=== PATIENT | female | born 1980 | race Caucasian/White ===

== ENCOUNTER 2021-05-27 12:59 | Outpatient (CLI) | payer OTHER ==
--- NOTE | 2021-06-02 15:21 | Mammography Report ---
BILATERAL DIGITAL SCREENING MAMMOGRAM 3D/2D WITH EXAGGERATED CC: 05/27/2021 CLINICAL: Routine screening. Additional films were requested but not obtained. The tissue of both breasts is heterogeneously dens e. This may lower the sensitivity of mammography. No significant masses, calcifications, or other findings are seen in either breast. IMPRESSION: NEGATIVE There is no mammographic evidence of malignancy. A 1 year screening mammogram is recommended. This exam was interpreted at Station ID: [id number]. NOTE: For mammograms, a report in lay terms will be sent to the patient. Approximately 15% of breast malignancies will not be visualized mammographically. In the management of a palpable breast mass, a negative mammogram must not discourage biopsy of a clinically suspicious lesion. Electronically Signed By: Vivek oliver/rahat:06/02/2021 08:31:23 ACR BI-RADS Category 1: Negative 3341F PARENCHYMAL PATTERN: (D) - The breast(s) demonstrate(s) heterogeneously dense fibroglandular [place]. BI-RADS CATEGORY: (1) - 1 RECOMMENDATION: (ANNUAL) - Recommend routine annual screening mammography. [id number] 1 year screening LATERALITY: (B)
== END 2021-05-27 13:00 | disposition home or self-care (01) ==
LOC: DI.S 12:59
DX: Z12.31 Encounter for screening mammogram for malignant neoplasm of breast (principal)

== ENCOUNTER 2021-06-14 00:24 | Emergency (ER) | payer OTHER ==
[2021-06-14] MEDS ORDERED: SODIUM CHLORIDE 0.9% 500 ML IV STA (00:48)
--- NOTE | 2021-06-14 00:54 | ED Physician Documentation ---
History of Present Illness - Stated complaint Stated Complaint: RT KNEE PX - Chief complaint Chief Complaint: Ext Problem - History obtained from History obtained from: Patient - Additonal information Additional information: Patient is a 41-year-old female with a history significant for hypertension presenting for evaluation of pain behind right knee that started at 11 PM. Patient was sitting when she noticed the pain and it did not improve. She has not had a similar pain previously and denies any recent injury or trauma.Patient Was concerned for blood clot and presented to the emergency department. She denies previous history of pulmonary embolism or DVT, estrogen use, recent travel or immobilization. She denies chest pain or difficulty breathing. She was noted to be tachycardic at arrival in triage and reports feeling anxious as she does not come to the doctor often. Her blood pressure was also elevated and she is on lisinopril 30 mg daily and has been compliant.The pain feels sharp and is worse Extending her knee or ambulating. It is better at rest. Review of Systems Constitutional: denies: Fever Nose: denies: Congestion Cardiac: denies: Chest pain / pressure Respiratory: denies: Dyspnea, Cough GI: denies: Abdominal Pain, Vomiting Skin: denies: Rash Musculoskeletal: reports: Joint pain. denies: Back pain, Extremity swelling Neurologic: denies: Head injury PD PAST MEDICAL HISTORY - Present Medications Home Medications: Ambulatory Orders Medication Instructions Recorded Confirmed Lisinopril [Zestril] 30 mg PO DAILY 06/14/21 06/14/21 - Allergies Allergies/Adverse Reactions: Allergies Allergy/AdvReac Type Severity Reaction Status Date / Time Sulfa (Sulfonamide Allergy Hives Verified 06/14/21 00:36 Antibiotics) PD ED PE NORMAL - General General: Alert and oriented X 3, No acute distress, Well developed/nourished - HEENT HEENT: Atraumatic, Moist mucous membranes - Neck Neck: Supple, no meningeal sign - Cardiac Cardiac: RRR, No murmur, Strong equal pulses - Respiratory Respiratory: No respiratory distress, Clear bilaterally - Abdomen Abdomen: Normal bowel sounds, Soft, Non tender - Derm Derm: Normal color, Warm and dry, No rash - Extremities Extremities: No deformity, No edema, No calf tenderness / cord, Other (Mild tenderness to Posterior knee, no laxity on exam, no erythema, pain worse with extension but able to fully extend, Distal pulses intact, compartments of extremity are soft) - Neuro Neuro: Alert and oriented X 3, No motor deficit, No sensory deficit - Psych Psych: Normal mood, Normal affect Results - Vitals Vitals: Vital Signs - 24 hr 06/14/21 06/14/21 06/14/21 00:32 00:42 01:55 Temperature 36.2 C L Heart Rate 120 H 106 H 97 Respiratory 18 21 18 Rate Blood Pressure 189/113 H 153/100 H 162/102 H O2 Saturation 100 100 100 Oxygen O2 Source Room air - EKG (time done) 1257 Rate: Rate (enter#) (104) Rhythm: Sinus tachycardia [place]: LAD Ischemia: T wave inversion (Inferior leads) Compare to prior EKG: Old EKG unavailable - Labs Labs: Laboratory Tests 06/14/21 06/14/21 06/14/21 00:53 00:53 00:53 WBC 8.1 RBC 4.29 Hgb 13.2 Hct 38.2 MCV 89.0 MCH 30.8 MCHC 34.6 RDW 12.8 Plt Count 302 MPV 9.5 Neut # (Auto) 4.7 Lymph # (Auto) 2.6 [place] # (Auto) 0.6 Eos # (Auto) 0.2 Baso # (Auto) 0.0 Absolute Nucleated RBC 0.00 Nucleated RBC % 0.0 D-Dimer < 200.0 L Sodium 135 Potassium 3.7 Chloride 102 Carbon Dioxide 23 Anion Gap 10.0 BUN 20 Creatinine 1.0 Estimated GFR (MDRD) 61 L Glucose 125 H Calcium 8.9 Total Bilirubin 0.4 AST 19 ALT 25 Alkaline Phosphatase 50 Total Protein 7.6 Albumin 3.9 Globulin 3.7 Albumin/Globulin Ratio 1.1 PD MEDICAL DECISION MAKING - ED course Complexity details: reviewed results, d/w patient ED course: Patient presenting for evaluation of pain behind right knee with concerns for DVT. Has no risk factors for DVT but is noted to be tachycardic on arrival. Unfortunately ultrasound is not available at this time of night and no marketing technology specialist is on-call. Discussed evaluation with patient to include D- dimer. She is agreeable. X-rays negative for fracture dislocation. Patient is neurovascularly intact with no signs of infection. Labs reviewed without significant abnormalities. D-dimer is negative. As she is low risk per the Wells score I do not think she needs further testing to evaluate for DVT or PE. Tachycardia has resolved on its own. Patient never had any chest pain or difficulty breathing. Blood pressure has also improved.Discussed supportive care with patient and she is to follow-up with her primary care doctor as scheduled on Wednesday. Patient is aware of strict return precautions. Departure - Departure Disposition: 01 Home, Self Care Clinical Impression: Sinus tachycardia, Elevated blood pressure reading Right knee pain Qualifiers: Chronicity: acute Qualified Code(s): M25.561 - Pain in right knee Condition: Stable Instructions: ED Knee Pain UKO, ED SPEEDY Comments: You were evaluated for pain behind your right knee. At this time the exact cause of the pain is unclear but does not appear to be related to a blood clot, infection, broken bone.Your heart rate was fast when you arrived in the emergency department. Your blood pressure was also elevated. Please continue taking your medication for blood pressure and have close follow-up with your doctor as scheduled on Wednesday. You can use Motrin or Tylenol for pain. While we were not able to do an ultrasound tonight, we did a blood test called a D- dimer to check for blood clot and it was negative.If your pain continues you may need further testing. If you have any worsening symptoms such as pain, weakness, redness, swelling or have chest pain or difficulty breathing please return to the emergency department. Discharge Date/Time: 06/14/21 02:00
[2021-06-14 00:58] LABS: BASOPHILS % (AUTO) 0.2 %; EOSINOPHILS # (AUTO) 0.2 10^3/uL (0.0-0.7); EOSINOPHILS % (AUTO) 1.8 %; HCT - HEMATOCRIT 38.2 % (37.0-47.0); HGB - HEMOGLOBIN 13.2 g/dL (12.0-16.0); LYMPHOCYTES # (AUTO) 2.6 10^3/uL (1.5-3.5); MEAN CORPUSCULAR HEMOGLOBIN 30.8 pg (27.0-31.0); MEAN CORPUSCULAR HGB CONC 34.6 g/dL (32.0-36.0); MEAN PLATELET VOLUME 9.5 fL (7.9-10.8); MONOCYTES # (AUTO) 0.6 10^3/uL (0.0-1.0); MONOCYTES % (AUTO) 7.4 %; NEUTROPHILS # (AUTO) 4.7 10^3/uL (1.5-6.6); NEUTROPHILS % (AUTO) 58.4 %; PLT - PLATELET COUNT 302 10^3/uL (130-450); RED BLOOD COUNT 4.29 10^6/uL (4.20-5.40); RED CELL DISTRIBUTION WIDTH 12.8 % (12.0-15.0); WHITE BLOOD COUNT 8.1 x10^3/uL (4.8-10.8)
[2021-06-14 01:10] LABS: ALBUMIN 3.9 g/dL (3.2-5.5); ALBUMIN/GLOBULIN RATIO 1.1 (1.0-2.2); BILIRUBIN,TOTAL 0.4 mg/dL (0.2-1.0); CALCIUM 8.9 mg/dL (8.5-10.3); POTASSIUM 3.7 mmol/L (3.5-5.0); TOTAL PROTEIN 7.6 g/dL (6.7-8.2)
--- NOTE | 2021-06-14 01:37 | XRAY Report ---
PROCEDURE: Knee 3 View RT INDICATIONS: pain TECHNIQUE: 3 views of the right knee(s) were acquired. COMPARISON: None. FINDINGS: Bones: No fractures or dislocations. No suspicious bony lesions. Soft tissues: No joint effusion. No suspicious soft tissue calcifications. IMPRESSION: Right knee without acute fracture or dislocation. If there is continued clinical concern for pathology or occult fracture, consider follow-up imaging w ith repeat radiographs in 10-14 days and possible advanced imaging (CT, MRI, bone scan) if symptoms p ersist. Reviewed by: Sandor Alonso MD on 06/14/2021 1:36 AM PDT Approved by: Sandor Alonso MD on 06/14/2021 1:36 AM PDT Station ID: [id number]
[2021-06-14] MEDS ORDERED: LIDOCAINE PATCH 5% TOP STA (01:42)
[2021-06-14 01:56] VITALS: BP 162/102
== END 2021-06-14 02:00 | disposition home or self-care (01) ==
LOC: ED 00:24
DX: M25.561 Pain in right knee (principal); R00.0 Tachycardia, unspecified; I10 Essential (primary) hypertension
CPT/HCPCS: 36415; 73562; 80053; 85025; 85379; 93005; 96360; 99284; A9270

== ENCOUNTER 2022-12-24 09:08 | Outpatient (CLI) | payer OTHER | END 2022-12-24 09:09 | disposition home or self-care (01) | LOC: LAB.S 09:08 | PROVIDERS: ATTEND Internal Medicine | DX: R79.89 Other specified abnormal findings of blood chemistry (principal) | CPT/HCPCS: 84445 ==

== ENCOUNTER 2022-12-29 15:05 | Outpatient (CLI) | payer OTHER ==
--- NOTE | 2022-12-31 16:04 | Mammography Report ---
BILATERAL DIGITAL SCREENING MAMMOGRAM 3D/2D WITH EXAGGERATED CC: 12/29/2022 CLINICAL: Routine screening. Comparison is made to exam dated: 05/27/2021 mammogram - [facility]. Both breasts are heterogeneously dense, which may obscure small masses (category c / 51-75% glandular tissue). There are multiple round and oval masses with circumscribed margins seen in both breasts. No significant masses, calcifications, or other findings are seen in either breast. There has been no significant interval change. IMPRESSION: BENIGN There are multiple, bilateral, round and oval benign appearing masses. No mammographic evidence of m alignancy. A 1 year screening mammogram is recommended. Based on the Tyrer Cuzick model (a risk assessment model) the patients lifetime risk is 16.4% and he r 10 year risk is 2.9%. According to the ACR, ACS, and NCCN guidelines, an annual breast MRI exam lenore ng with mammogram is recommended if the patients lifetime risk is 20% or greater. This exam was interpreted at Station ID: [id number]. NOTE: For mammograms, a report in lay terms will be sent to the patient. Approximately 15% of breast malignancies will not be visualized mammographically. In the management of a palpable breast mass, a negative mammogram must not discourage biopsy of a clinically suspicious lesion. Electronically Signed By: Winsome Laura M.D., PH.D eb/:12/30/2022 23:10:53 letter sent: No_Letter ACR BI-RADS Category 2: Benign Finding(s) 3342F PARENCHYMAL PATTERN: (D) - The breast(s) demonstrate(s) heterogeneously dense fibroglandular [place]. BI-RADS CATEGORY: (2) - 2 Mammogram [id number] 1 year screening LATERALITY: (B)
== END 2022-12-29 15:06 | disposition home or self-care (01) ==
LOC: DI.S 15:05
DX: Z12.31 Encounter for screening mammogram for malignant neoplasm of breast (principal); R92.333 Mammographic heterogeneous density, bilateral breasts